=== PATIENT | male | born 1950 | race Two or more races ===

== ENCOUNTER 2021-05-27 09:32 | Outpatient (CLI) | payer OTHER | END 2021-05-27 09:47 | disposition home or self-care (01) | LOC: RAD 09:32 | PROVIDERS: ATTEND Urology | DX: C67.8 Malignant neoplasm of overlapping sites of bladder (principal); R31.0 Gross hematuria; N13.39 Other hydronephrosis | CPT/HCPCS: 51600; 74430; 76770; Q9958 ==